=== PATIENT | female | born 1940 | race Caucasian/White ===

== ENCOUNTER → 2018-04-25 18:56 | Outpatient (CLI) | payer MEDICARE ==
[2018-04-25 20:12] LABS: ANION GAP 8.8 mmol/L (8-16); CALCIUM 9.1 mg/dL (8.5-10.1); CARBON DIOXIDE 34.6 mmol/L (21.0-32.0); CREATININE - SERUM 0.9 mg/dL (0.6-1.3); POTASSIUM - SERUM 4.4 mmol/L (3.5-5.1)
== END | disposition home or self-care (01) ==
LOC: D.LABREF 18:56
PROVIDERS: Internal Medicine Interventional Cardiology
DX: I10 Essential (primary) hypertension (principal)